=== PATIENT | female | born 1975 | race Caucasian/White ===

== ENCOUNTER 2019-10-29 07:04 | Outpatient (CLI) | payer OTHER, SELFPAY ==
[2019-10-29 08:06] LABS: Basophils Percent Auto 0.2 % (0.2-1.2); Eosinophils Absolute Auto 0.2 K/mm3 (0-0.3); Eosinophils Percent Auto 3.9 % (0-4.4); Hematocrit 42.3 % (37.0-47.0); Hemoglobin 14.1 g/dL (12.0-15.0); Immature Granulocyte Absolute 0.01 K/mm3 (0.00-0.031); Immature Granulocyte Percent A 0.2 % (0-0.5); Lymphocytes Absolute Auto 1.23 K/mm3 (0.9-3.2); Mean Corpuscular HGB Conc 33.3 g/dl (32-36); Mean Corpuscular Hemoglobin 30.7 pg (26-34); Mean Platelet Volume 10.7 fl (7.4-10.4); Monocytes Absolute Auto 0.4 K/mm3 (0.1-0.6); Neutrophils Absolute Auto 2.6 K/mm3 (1.3-6.7); Neutrophils Percent Auto 59.7 % (45.5-73.1); Platelet Count Result 196 k/mm3 (150-375); Red Cell Distribution Width 12.3 % (11.5-14.5); White Blood Count 4.4 K/mm3 (4.5-10.0)
[2019-10-29 08:47] LABS: Alanine Aminotransferase 21 U/L (4-35); Albumin Level 4.4 g/dL (3.5-5.1); Alkaline Phosphatase 107 U/L (38-126); Anion Gap 7 mmol/L (8-16); Aspartate Amino Transferase 27 U/L (14-36); Bilirubin,Total 0.3 mg/dL (0.2-1.3); Blood Urea Nitrogen 13 mg/dL (7-17); Calcium 8.9 mg/dL (8.4-10.2); Carbon Dioxide 27 mmol/L (22-30); Chloride 104 mmol/L (98-107); Cholesterol 238 mg/dL (0-200); Estimated Glomerular Filt Rate > 60; Glucose 86 mg/dL (65-105); HDL Direct 108 mg/dL; Sodium 138 mmol/L (137-145); Triglycerides 108 mg/dL (<150)
[2019-10-29 08:58] LABS: LDL Cholesterol Direct 110 mg/dL
[2019-10-29 09:49] LABS: Folic Acid 11.1 ng/mL (2.76->20)
== END 2019-10-29 07:05 | disposition home or self-care (01) ==
LOC: ANHLAB 07:06
PROVIDERS: PCP Internal Medicine; Visit Provider Internal Medicine
DX: R53.83 Other fatigue (principal); E78.5 Hyperlipidemia, unspecified
CPT/HCPCS: 36415; 80053; 80061; 82607; 82746; 84443; 85025

== ENCOUNTER 2020-01-31 10:03 | Outpatient (NON) | payer OTHER, SELFPAY ==
[2020-02-01 01:59] LABS: SARS-CoV-2 RNA PCR Positive
== END 2020-01-31 10:04 ==
LOC: ANHCOVIDDT 10:04
PROVIDERS: PCP Internal Medicine; Visit Provider Physician Assistant
DX: U07.1 COVID-19 (principal)
CPT/HCPCS: 87635; C9803; U0003

== ENCOUNTER 2020-02-22 15:41 | Outpatient (CLI) | payer OTHER, SELFPAY ==
--- NOTE | ~2020-02-22 | MM_ITS ---
EXAMINATION: MM screening [facility] BI w dionicio HISTORY: Screening mammogram TECHNIQUE: Craniocaudal and mediolateral oblique 3-D tomosynthesis images were obtained and synthetic 2-D images were generated. CAD analysis was submitted and interpreted. COMPARISON: 12/01/2018, 01/24/2014, 01/10/2014 BREAST PARENCHYMAL COMPOSITION: The breasts are heterogeneously dense, which may obscure small masses . FINDINGS: There is no evidence of suspicious mass, calcification, or architectural distortion to sugg est malignancy in either breast. There has been no suspicious interval change. IMPRESSION: 1. No mammographic evidence of malignancy. 2. Recommend routine screening mammography in one year. BI-RADS Category 1: Negative Reviewed, dictated and finalized at location A. OMER SERVICE SALES CONSULTANT
== END 2020-02-22 15:42 | disposition home or self-care (01) ==
LOC: ANHIMG 15:42
PROVIDERS: PCP Internal Medicine; Visit Provider Internal Medicine
DX: Z12.31 Encounter for screening mammogram for malignant neoplasm of breast (principal)
CPT/HCPCS: 77063; 77067

== ENCOUNTER 2020-03-05 16:12 | Outpatient (CLI) | payer OTHER, SELFPAY ==
[2020-03-05 16:39] LABS: Alanine Aminotransferase 36 U/L (4-35); Aspartate Amino Transferase 38 U/L (14-36)
== END 2020-03-05 16:13 | disposition home or self-care (01) ==
LOC: ANHLAB 16:14
PROVIDERS: PCP Internal Medicine; Visit Provider Podiatrist Foot & Ankle Surgery
DX: B35.1 Tinea unguium (principal)
CPT/HCPCS: 36415; 84450; 84460

== ENCOUNTER 2020-04-28 07:21 | Outpatient (CLI) | payer OTHER, SELFPAY ==
[2020-04-28 07:51] LABS: Basophils Percent Auto 0.3 % (0.2-1.2); Eosinophils Absolute Auto 0.2 K/mm3 (0-0.3); Eosinophils Percent Auto 4.1 % (0-4.4); Hemoglobin 13.1 g/dL (12.0-15.0); Immature Granulocyte Absolute 0.02 K/mm3 (0.00-0.031); Immature Granulocyte Percent A 0.6 % (0-0.5); Lymphocytes Percent Auto 30.4 % (18.3-44.2); Mean Corpuscular HGB Conc 32.8 g/dl (32-36); Mean Corpuscular Hemoglobin 30.5 pg (26-34); Mean Platelet Volume 10.1 fl (7.4-10.4); Monocytes Absolute Auto 0.3 K/mm3 (0.1-0.6); Monocytes Percent Auto 9.4 % (2.6-8.5); Neutrophils Percent Auto 55.2 % (45.5-73.1); Platelet Count Result 186 k/mm3 (150-375); Red Cell Distribution Width 12.6 % (11.5-14.5); White Blood Count 3.6 K/mm3 (4.5-10.0)
[2020-04-28 09:00] LABS: Folic Acid 9.1 ng/mL (2.76->20)
== END 2020-04-28 07:22 | disposition home or self-care (01) ==
PROVIDERS: PCP Internal Medicine; Visit Provider Internal Medicine
DX: D72.819 Decreased white blood cell count, unspecified (principal); E53.8 Deficiency of other specified B group vitamins
CPT/HCPCS: 36415; 82607; 82746; 85025

== ENCOUNTER 2020-05-02 16:19 | Outpatient (CLI) | payer OTHER, SELFPAY ==
[2020-05-05 07:44] LABS: FSH 124.6 mIU/mL (***); Testosterone Total 26 ng/dL (2-45)
[2020-05-10 21:42] LABS: Estrogen 192.4 pg/mL
== END 2020-05-02 16:20 | disposition home or self-care (01) ==
LOC: ANHLAB 16:20
PROVIDERS: PCP Internal Medicine; Visit Provider Obstetrics & Gynecology
DX: N95.1 Menopausal and female climacteric states (principal)
CPT/HCPCS: 36415; 82672; 83001; 84403

== ENCOUNTER 2020-06-04 16:16 | Outpatient (CLI) | payer OTHER, SELFPAY ==
[2020-06-04 16:49] LABS: Alanine Aminotransferase 17 U/L (4-35); Aspartate Amino Transferase 31 U/L (14-36)
== END 2020-06-04 16:17 | disposition home or self-care (01) ==
LOC: ANHLAB 16:18
PROVIDERS: PCP Internal Medicine; Visit Provider Podiatrist Foot & Ankle Surgery
DX: B35.1 Tinea unguium (principal)
CPT/HCPCS: 36415; 84450; 84460

== ENCOUNTER 2021-05-16 16:11 | Emergency (ER) | payer OTHER, SELFPAY ==
--- NOTE | ~2021-05-16 | XR_ITS ---
EXAMINATION: XR ankle RT min 3V EXAM DATE: 05/16/2021 16:47 INDICATION: Right ankle pain after a fall 6 days ago . TECHNIQUE: Right ankle frontal, lateral and oblique projections obtained and reviewed. There is no p rior study for comparison. FINDINGS: The right ankle mortise appears intact. There are no acute fractures or dislocations iden tified. There is no subcutaneous gas. The soft tissue is unremarkable. There are no radiopaque fo reign bodies. IMPRESSION: No acute osseous findings. Reviewed, dictated and finalized at location A. F ANTISUBMARINE OFFICER IMPRESSION: No acute osseous findings.
--- NOTE | ~2021-05-16 | XR_ITS ---
EXAMINATION: XR knee LT 3V DATE: 05/16/2021 16:47 INDICATION: Left knee pain post fall TECHNIQUE: Anteroposterior, 2 oblique and crosstable lateral views of the left knee were obtained COMPARISON: None. FINDINGS: Alignment is normal. No fracture. Spaces appear normal on nonweightbearing imaging. No joint effusio n/layering lipohemarthrosis. Soft tissues are unremarkable. IMPRESSION: 1. Negative left knee radiographs. Reviewed, dictated and finalized at location A. KSHAFT BALANCER
--- NOTE | 2021-05-16 16:18 | ED.LOWEXIN ---
HPI - Extremity Injury (Lower) General Chief Complaint: Extremity Injury, Lower Stated Complaint: lt knee and rt ankle pain Time Seen by Provider: 05/16/21 16:55 Source: patient and RN notes reviewed Mode of arrival: ambulatory Limitations: no limitations History of Present Illness HPI Narrative: 45-year-old female presents concern for right ankle pain and left knee. Reports days ago while on vacation she slipped falling on a concrete chair in a pool hitting her left knee. She same time she twisted her right leg. She reports since then she has been using Tylenol, compression. She reports she used ibuprofen at the beginning of the injury. She reports knee pain is anterior and has been getting slightly better. She reports healing abrasion to the left knee. MD complaint: knee injury and ankle injury Related Data Home Medications Medication Instructions Recorded Confirmed carvedilol [Coreg] 6.25 mg PO BID 05/16/21 05/16/21 fluticasone propionate [Flonase] 1 spray INTRANASAL DAILY 05/16/21 05/16/21 ospemifene [Osphena] 60 mg PO DAILY 05/16/21 05/16/21 venlafaxine [Effexor XR] 37.5 mg PO DAILY 05/16/21 05/16/21 Allergies Allergy/AdvReac Type Severity Reaction Status Date / Time cat dander Allergy Mild Other Verified 05/16/21 16:28 ragweed pollen Allergy Mild Unknown Verified 05/16/21 16:28 Review of Systems Review of Systems: CONSTITUTIONAL: Denies malaise, chills, sweats, or fever. SKIN: Denies rash or itching, open skin, laceration, abrasion, redness, warmth, swelling. MUSCULOSKELETAL: Reports left knee pain and right ankle pain NEUROLOGIC: Denies numbness, weakness All systems reviewed & are unremarkable except as noted in HPI and below PMFSH Past Medical History Medical History Asthma History of vaginal delivery Toenail fungus Surgical History Surgical History H/O tubal ligation History of bunionectomy History of colonoscopy S/P breast lumpectomy [place] teeth removed Family History Family History Mother Patient's mother is in good health Family history of dementia Father Heart disease Sibling Patient's sister is in good health Patient's brother is in good health Grandparent Carcinoma of colon Family history of malignant neoplasm of breast Cerebrovascular accident Social History Social History Smoking packs per day: 0.2 Smoking cigarettes per day: 4.0 Years smoked: 30 Smoking pack-years: 6.00 Smoking status: Current every day smoker Second hand tobacco smoke exposure: No Alcohol intake: current Comments At time of signature, agree with nursing past medical, surgical, social and family history. There is no relevant family history pertinent to the presenting complaint Exam Narrative: GENERAL: Well-appearing, well-nourished, and in no acute distress. HEAD: Normocephalic, atraumatic. EYES: PERRLA, conjunctivae clear NECK: Supple. CHEST: Speaks in full sentences. No respiratory distress. HEART: Regular rate and rhythm. Normal and equal peripheral pulses. EXTREMITIES: Right ankle has normal strength and sensation, normal range of motion. No edema, mild healing ecchymosis. 5/5 strength with ankle and digit flexion and extension. Normal sensation with sensitivity to light touch and pain. No point tenderness. No open wounds, no skin tenting, no devitalized tissue or atrophy, no trophic changes, no obvious deformity, alignment normal, nearby joints and structures intact. Distal pulses palpable and equal bilaterally, skin warm, dry, pink. Capillary refill less than 3 seconds. Left knee has normal strength and sensation, grossly normal range of motion. Mild superficial anterior edema, no ecchymosis. Normal sensation with sensitivity to light touch and pain. Anterior tenderness. No ope
[2021-05-16 16:21] VITALS: BP 152/77; PULSE 83; RESP 18; TEMP 36.8; O2SAT 100
== END 2021-05-16 17:11 | disposition home or self-care (01) ==
PROVIDERS: Emergency Provider Nurse Practitioner; PCP Internal Medicine
DX: S93.401A Sprain of unspecified ligament of right ankle, initial encounter (principal); S96.911A Strain of unspecified muscle and tendon at ankle and foot level, right foot, initial encounter; S89.92XA Unspecified injury of left lower leg, initial encounter; W01.0XXA Fall on same level from slipping, tripping and stumbling without subsequent striking against object, initial encounter; F17.210 Nicotine dependence, cigarettes, uncomplicated; J45.909 Unspecified asthma, uncomplicated
CPT/HCPCS: 73562; 73610; 99214; G0463

== ENCOUNTER 2021-06-12 15:20 | Outpatient (CLI) | payer OTHER, SELFPAY ==
--- NOTE | ~2021-06-12 | MM_ITS ---
EXAMINATION: MM screening [facility] w dionicio HISTORY: Screening TECHNIQUE: Craniocaudal and mediolateral oblique 3-D tomosynthesis images were obtained and synthetic 2-D images were generated. CAD analysis was submitted and interpreted. COMPARISON: Comparison to multiple prior studies sequentially, with oldest reviewed study dated 11/2012. BREAST PARENCHYMAL COMPOSITION: The breasts are heterogeneously dense, which may obscure small masses . FINDINGS: There is no evidence of suspicious mass, calcification, or architectural distortion to sugg est malignancy in either breast. There has been no suspicious interval change. IMPRESSION: 1. No mammographic evidence of malignancy. 2. Recommend routine screening mammography in one year. BI-RADS Category 1: Negative Reviewed, dictated and finalized at location A.
== END 2021-06-12 15:21 | disposition home or self-care (01) ==
LOC: ANHIMG 15:21
PROVIDERS: PCP Internal Medicine; Visit Provider Physician Assistant
DX: Z12.31 Encounter for screening mammogram for malignant neoplasm of breast (principal)
CPT/HCPCS: 77063; 77067

== ENCOUNTER 2021-07-16 08:58 | Outpatient (CLI) | payer OTHER, SELFPAY ==
--- NOTE | 2021-07-16 11:15 | NEURO_ITS ---
Impression: # Complains of numbness of hands. # No Carpal Tunnel Syndrome. # No ulnar neuropathy. # Normal needle/EMG exam. # Clinical correlation recommended. Nerve Conduction Studies Anti Sensory Summary Table Stim Site NR Peak (ms) P-T Amp (?V) Site1 Site2 Delta-P (ms) Dist (cm) Cheo (m/s) Left Median Anti Sensory (2-3nd Digit) Wrist 2.8 92.0 Wrist 2-3nd Digit 2.8 14.0 50 Wrist 2.8 96.8 Wrist 2-3nd Digit 2.8 14.0 50 Right Median Anti Sensory (2-3nd Digit) Wrist 3.2 63.9 Wrist 2-3nd Digit 3.2 14.0 44 Wrist 3.3 86.4 Wrist 2-3nd Digit 3.2 14.0 44 Left Radial Anti Sensory (Base 1st Digit) Wrist 2.1 21.8 Wrist Base 1st Digit 2.1 0.0 Right Radial Anti Sensory (Base 1st Digit) Wrist 2.5 17.1 Wrist Base 1st Digit 2.5 0.0 Left Ulnar Anti Sensory (5th Digit) Wrist 2.5 59.7 Wrist 5th Digit 2.5 14.0 56 Right Ulnar Anti Sensory (5th Digit) Wrist 2.8 52.2 Wrist 5th Digit 2.8 14.0 50 Motor Summary Table Stim Site NR Onset (ms) O-P Amp (mV) Site1 Site2 Delta-0 (ms) Dist (cm) Cheo (m/s) Left Median Motor (Abd Poll Brev) Wrist 3.0 3.2 Elbow Wrist 5.3 29.0 55 Elbow 8.3 5.2 Right Median Motor (Abd Poll Brev) Wrist 3.2 3.5 Elbow Wrist 5.0 28.0 56 Elbow 8.2 3.4 Left Ulnar Motor (Abd Dig Minimi) Wrist 2.3 5.6 A Elbow Wrist 4.9 28.0 57 A Elbow 7.2 4.5 Right Ulnar Motor (Abd Dig Minimi) Wrist 2.5 6.0 A Elbow Wrist 5.3 29.0 55 A Elbow 7.8 4.7 F Wave Studies NR F-Lat (ms) L-R F-Lat (ms) Left Median (Mrkrs) (Abd Poll Brev) 27.32 1.19 Right Median (Mrkrs) (Abd Poll Brev) 28.52 1.19 Left Ulnar (Mrkrs) (Abd Dig Min) 27.19 0.47 Right Ulnar (Mrkrs) (Abd Dig Min) 27.66 0.47 EMG Side Muscle Nerve Root Ins Act Fibs Amp Dur Recrt Comment Right 1stDorInt Ulnar C8-T1 Nml Nml Nml Nml Nml Right Ext Indicis Radial (Post Int) C7-8 Nml Nml Nml Nml Nml Right Ext Digitorum Radial (Post Int) C7-8 Nml Nml Nml Nml Nml Right BrachioRad Radial C5-6 Nml Nml Nml Nml Nml Right PronatorTeres Median C6-7 Nml Nml Nml Nml Nml Right Abd Poll Brev Median C8-T1 Nml Nml Nml Nml Nml Left 1stDorInt Ulnar C8-T1 Nml Nml Nml Nml Nml Left Ext Indicis Radial (Post Int) C7-8 Nml Nml Nml Nml Nml Left Ext Digitorum Radial (Post Int) C7-8 Nml Nml Nml Nml Nml Left BrachioRad Radial C5-6 Nml Nml Nml Nml Nml Left PronatorTeres Median C6-7 Nml Nml Nml Nml Nml Left Abd Poll Brev Median C8-T1 Nml Nml Nml Nml Nml MTDD
== END 2021-07-16 08:59 | disposition home or self-care (01) ==
PROVIDERS: PCP Internal Medicine; Visit Provider Internal Medicine
DX: R20.0 Anesthesia of skin (principal)
CPT/HCPCS: 95886; 95911

== ENCOUNTER → 2022-06-10 10:21 | Outpatient (CLI) | payer OTHER, SELFPAY ==
--- NOTE | ~2022-06-10 | US_ITS ---
EXAMINATION: US pelvic complete w TV DATE: 06/10/2022 10:48 INDICATION: Postmenopausal bleeding. TECHNIQUE: Multiple transabdominal and transvaginal sonographic images of the pelvis were obtained. COMPARISON: None. FINDINGS: TRANSABDOMINAL ULTRASOUND: The uterus measures 7.8 x 3.3 x 3.9 cm. There is no free fluid in the pelvis. TRANSVAGINAL ULTRASOUND: The endometrial complex measures 6 mm in thickness. The right ovary measures 2.3 x 1.5 x 2.7 cm. The left ovary measures 1.4 x 0.8 x 1.7 cm. There is normal vascular flow in the ovaries. IMPRESSION: 1. Thickened endometrial complex. The differential diagnosis includes endometrial hyperplasia, polyp, and carcinoma. Biopsy is recommended. Reviewed, dictated and finalized at location A. IMPRESSION: 1. Thickened endometrial complex. The differential diagnosis includes endometri al hyperplasia, polyp, and carcinoma. Biopsy is recommended.
== END ==
PROVIDERS: PCP Internal Medicine; Visit Provider Obstetrics & Gynecology
DX: N95.0 Postmenopausal bleeding (principal); R93.89 Abnormal findings on diagnostic imaging of other specified body structures
CPT/HCPCS: 76830; 76856

== ENCOUNTER 2022-08-15 01:01 | Day surgery (SDC) | payer OTHER, SELFPAY ==
[2022-08-11 16:21] VITALS: BMI 26.6
--- NOTE | 2022-08-11 16:47 | PC.NURSE ---
Report to the Outpatient Waiting Room, entrance under the green pavilion located off [facility], at 1000 on 08-15-22. Planned Procedure Time: 1200. Time changes happen often and if your time is changed the preop area will call you the afternoon before. - You and your visitor will be asked to self-screen and do not enter if you have any COVID symptoms. - A mask is optional within the hospital at this time. Patients may have clear liquids (water, carbonated beverages, clear teas, apple juice) until 3 hours prior to surgery with a maximum of 20 ounces. 0900 - No food from midnight until time of surgery - Infants may have breast milk until 4 hours before surgery, formula 6 hours prior to surgery. - Children will be allowed to drink immediately following surgery. If applicable, please bring a bottle or sippy cup to assist with drinking. Juice, water, soda, and popsicles are readily available. For infants on formula, please bring formula the day of surgery. Pacifiers are allowed. Take the following medications with a SIP of water the morning of surgery: Tylenol if needed DO NOT STOP ANY OF YOUR OTHER PRESCRIPTION MEDICATIONS PRIOR TO SURGERY ?EXCEPT THE FOLLOWING Medications to discontinue per physician: N/A Please no make-up, nail chinese, hairspray, perfume, deodorant, or body powder the day of surgery. No jewelry (including any body piercings) or valuables the day of surgery, leave them at home. Please take a shower or bath the night before, or the morning of, surgery with an antibacterial soap. Wear comfortable, loose fitting clothing. Children are encouraged to wear pajamas. - Jewelry must be removed prior to entering the operating room. Rings and piercings that are not removed may be cut off. - The hospital will not accept responsibility for valuables. - Please leave all valuables, including medications, at home the day of surgery. If you are going home after surgery, a licensed lift driver must drive you home. - NO public transportation without another adult if you receive anesthesia. - We recommend that an adult stay with you for 24 hours following discharge. - We also recommend that you do not drive, make important decision, drink alcoholic beverages, or take any drugs that were not prescribed by your health care provider for at least 24 hours after your discharge time. For Pediatric surgeries, we recommend two adults accompany the child home. Follow any additional instructions given to you from your surgeon. If you or anyone in your household have experienced Covid symptoms in the past week, please notify your surgeon or the nurse liaison at the phone number below for possible testing. Telephone instructions given to Julissa Ahn and asked if any additional questions and then verbalized understanding. Patient advised to call surgeon office or pre surgery nurse liaison [phone] if any additional questions.
--- NOTE | 2022-08-14 16:10 | PM.IMHP ---
H&P: HPI History of Present Illness Date/Time: 08/14/22 16:10 Chief Complaint: Postmenopausal bleeding Narrative: Patient with history of postmenopausal bleeding she had thickened endometrial stripe on ultrasound and biopsy shows cystic endometrial atrophy she was recommended for D and C hysteroscopy. Review of Systems Review of Systems: All systems reviewed & are unremarkable except as noted in HPI and below Cardiovascular: Cardiovascular: Reports no additional cardiovascular complaints, Denies chest pain and Denies dyspnea Respiratory: Respiratory: Reports no additional respiratory complaints and Denies dyspnea Gastrointestinal: Gastrointestinal: Reports abdominal pain, Denies change in bowel habits, Denies diarrhea, Denies nausea and Denies vomiting Genitourinary: Genitourinary: Reports pelvic pain Musculoskeletal: Musculoskeletal: Reports back pain Integumentary/Breasts: Skin/Breast: Reports system reviewed and no additional complaints, except as docu Neurologic: Reports system reviewed and no additional complaints, except as documented PMFSH Past Medical History Medical History Asthma History of vaginal delivery Toenail fungus Surgical History Surgical History H/O tubal ligation History of bunionectomy History of colonoscopy S/P breast lumpectomy [place] teeth removed Family History Family History Mother Patient's mother is in good health Family history of dementia Father Heart disease Sibling Patient's sister is in good health Patient's brother is in good health Grandparent Carcinoma of colon Family history of malignant neoplasm of breast Cerebrovascular accident Social History Social History Smoking packs per day: 0.5 Smoking cigarettes per day: 10.0 Years smoked: 30 Smoking pack-years: 15.00 Smoking status: Current some day smoker Tobacco type: cigarettes and smokeless tobacco Second hand tobacco smoke exposure: No Additional smoking assessment comments: Patient currently may smoke 1-2 cigarettes per day and chews nicotine gum Alcohol intake: current Drinks per week: 4 Alcohol use details: may 3-4 drinks on the weekends Substance use: never Substance use type: does not use Lack of Transportation: No Lack of Food: Never True Current Housing: I Have Housing Concerned About Future Housing: No Difficulty Paying Gas/Electric Bills: No Difficulty Paying for Meds: No Currently Unemployed: No Education: Associate Degree Difficulty w/ Childcare or Family Care: No Living arrangements: with family Spiritual care concerns: No Meds Home Medications and Allergies Home Medications Medication Instructions Recorded Confirmed Type fluticasone propionate 50 1 spray intranasal DAILY 06/24/22 08/15/22 History mcg/actuation nasal spray,suspension atorvastatin 20 mg tablet 20 mg PO DAILY #90 tabs 07/16/22 08/15/22 Rx acetaminophen 500 mg capsule 1,000 mg PO Q6H PRN pain 08/11/22 08/15/22 History carvedilol 6.25 mg tablet 6.25 mg PO DAILY 08/11/22 08/15/22 History Allergies Allergy/AdvReac Type Severity Reaction Status Date / Time cat dander Allergy Mild Other Verified 08/15/22 09:59 ragweed pollen Allergy Mild Watery Eye Verified 08/15/22 09:59 Exam Const: Orientation/consciousness: oriented to person and oriented to place HENMT: Head: normal to inspection Eyes: General: appearance normal, both eyes and all related structures Resp: Effort & Inspection: normal respiratory effort Auscultation: clear to auscultation bilaterally Cardio: Rate: regular rate Rhythm: regular rhythm GI: Inspection: normal to inspection GI Palp: No Rebound tenderness present Neuro: General: oriented to person and orie
[2022-08-15 10:02] VITALS: BP 154/68; PULSE 79; RESP 18; TEMP 36.6; O2SAT 100
--- NOTE | 2022-08-15 10:17 | WPDANESEPPF ---
Anes - Initial Pre Proc Eval Procedure: Operation Date: 08/15/22 11:45 Proposed Procedures p Hysteroscopy Dilation and Curettage with Removal of any Endometrial Lesions If Necessary - Cristopher Leon MD Date/Time: 08/15/22 10:17 Surgeon: Cristopher Leon MD Pre Op Diagnosis: Post Menopausal Bleeding Patient Data Age: 46 Gender: F Height: 1.68 m Weight: 73.9 kg Last Vital Signs Temp 36.6 C 08/15/22 10:02 Pulse 79 08/15/22 10:02 Resp 18 08/15/22 10:02 BP 154/68 H 08/15/22 10:02 Pulse Ox 100 08/15/22 10:02 Allergies Allergy/AdvReac Type Severity Reaction Status Date / Time cat dander Allergy Mild Other Verified 08/15/22 09:59 ragweed pollen Allergy Mild Watery Eye Verified 08/15/22 09:59 Home Medications Medication Instructions Recorded Confirmed Type fluticasone propionate 50 1 spray intranasal DAILY 06/24/22 08/15/22 History mcg/actuation nasal spray,suspension atorvastatin 20 mg tablet 20 mg PO DAILY #90 tabs 07/16/22 08/15/22 Rx acetaminophen 500 mg capsule 1,000 mg PO Q6H PRN pain 08/11/22 08/15/22 History carvedilol 6.25 mg tablet 6.25 mg PO DAILY 08/11/22 08/15/22 History Patient hx anesthesia problems: none Family hx anesthesia problems: none Results Review: All pre-operative results and documents have been reviewed as part of the pre-operative evaluation. [facility] Past Medical History Medical History Asthma History of vaginal delivery Toenail fungus Surgical History Surgical History H/O tubal ligation History of bunionectomy History of colonoscopy S/P breast lumpectomy [place] teeth removed Family History Family History Mother Patient's mother is in good health Family history of dementia Father Heart disease Sibling Patient's sister is in good health Patient's brother is in good health Grandparent Carcinoma of colon Family history of malignant neoplasm of breast Cerebrovascular accident Social History Social History Smoking packs per day: 0.5 Smoking cigarettes per day: 10.0 Years smoked: 30 Smoking pack-years: 15.00 Smoking status: Current some day smoker Tobacco type: cigarettes and smokeless tobacco Second hand tobacco smoke exposure: No Additional smoking assessment comments: Patient currently may smoke 1-2 cigarettes per day and chews nicotine gum Alcohol intake: current Drinks per week: 4 Alcohol use details: may 3-4 drinks on the weekends Substance use: never Substance use type: does not use Lack of Transportation: No Lack of Food: Never True Current Housing: I Have Housing Concerned About Future Housing: No Difficulty Paying Gas/Electric Bills: No Difficulty Paying for Meds: No Currently Unemployed: No Education: Associate Degree Difficulty w/ Childcare or Family Care: No Living arrangements: with family Spiritual care concerns: No Anes - Eval Final PreProcedure Day of Procedure 08/15/22 10:17 Patient weight: overweight Heart: regular rate and rhythm Lungs: clear to auscultation Airway: Mallampati scale class II Neurological: alert and oriented Last oral intake: >/= 8 hours ASA classification: III Emergent: no Anesthetic plan: proceed Anesthesia type and monitoring: general GIVS and standard monitoring Results Review: All pre-operative results and documents have been reviewed as part of the pre-operative evaluation. Informed Consent: The patient's anesthetic plan and its attendant risks and benefits were discussed with the patient/family/POA. Questions were solicited and answers provided to the satisfaction of the patient/family/POA.
[2022-08-15] MEDS: LACTATED RINGERS 1,000 ML 30 ML IV CONT (10:24)
[2022-08-15] MEDS: ACETAMINOPHEN 500 MG TABLET 1000 MG PO (11:08)
--- NOTE | 2022-08-15 11:35 | WPDHPUPDATE1 ---
History and Physical Update Update Date/Time: 08/15/22 11:35 History and Physical has been reviewed, including an updated exam of the patient. There are NO changes in the patient's condition. Risks, benefits, and alternatives have been discussed and questions answered. Patient agrees to proceed with procedure.
--- NOTE | 2022-08-15 11:53 | SUR.PREOP ---
PATIENT UPDATED ON TIME DELAY
--- NOTE | 2022-08-15 11:56 | W.PM.PROC2 ---
Procedure Note - Detailed Date of Procedure 08/15/22 Pre-op Diagnosis Post Menopausal Bleeding Post-op Diagnosis Same Procedure Performed Dilation and curettage hysteroscopy diagnostic. Surgeon Cristopher Leon MD Anesthesia MAC and Local Indications Postmenopausal bleeding, endometrial biopsy with cystic atrophy. Description of Procedure After form consent was obtained patient was taken to the operating room and adequate IV sedation was administered. She was placed in high lithotomy position and prepped and draped in sterile fashion. Attention was turned to the vagina. Speculum inserted. Single-tooth tenaculum placed on anterior lip of the cervix. 1% lidocaine was injected at the cervical vaginal interface at 2, 5, 8 and 10 oclock position. The was sounded to 7cm. The hysteroscope was inserted and the cervix was dilated with hydrodilation as it was advanced into uterine canal. The cavity appeared atrophic. No lesions seen. A curettage was then performed and there was minimal tissue obtained. The single-tooth tenaculum was removed. Hemostasis was noted. The speculum was removed. The patient tolerated procedure well. Estimated Blood Loss 5 Drains No Packing No Pathology Yes ( Scant endometrial curettings) Complications No immediate complications Condition Stable Disposition PACU [facility] Billing Surgery - Charge Forward: Surgery Billing
[2022-08-15] MEDS: ceFAZolin 2 GM/D5W 50 ML 2 GM/50 ML BAG IVPB (12:10)
[2022-08-15] MEDS: LIDOCAINE HCL 1% LOCAL INJ 10 ML VIAL INFILTRATE (12:17)
[2022-08-15 12:31] VITALS: BP 129/88; PULSE 85; RESP 16; O2SAT 100
[2022-08-15 13:00] VITALS: BP 141/73; PULSE 71; RESP 18
[2022-08-15 13:18] VITALS: BP 146/63; PULSE 74; RESP 16
== END 2022-08-15 13:21 | disposition home or self-care (01) ==
PROVIDERS: PCP Internal Medicine; Visit Provider Obstetrics & Gynecology
PROC: 0U5B8ZZ Destruction of Endometrium, Via Natural or Artificial Opening Endoscopic (ICD-10-PCS; CPT 58563; principal; 2022-08-15 11:45)
DX: N95.0 Postmenopausal bleeding (principal); F17.210 Nicotine dependence, cigarettes, uncomplicated
CPT/HCPCS: 58558; 88305; A9270; J0690; J2250; J2704; J3010; J7120

== ENCOUNTER 2022-08-27 16:12 | Outpatient (CLI) | payer OTHER, SELFPAY ==
--- NOTE | ~2022-08-27 | MM_ITS ---
EXAMINATION: MM screening [facility] BI w dionicio HISTORY: Screening mammogram TECHNIQUE: Craniocaudal and mediolateral oblique 3-D tomosynthesis images were obtained and synthetic 2-D images were generated. CAD analysis was submitted and interpreted. COMPARISON: June 12, 2021, February 22, 2020, December 01, 2018 bilateral digital screening mammogra m examinations BREAST PARENCHYMAL COMPOSITION: The breasts are heterogeneously dense, which may obscure small masses . FINDINGS: There is no evidence of suspicious mass, calcification, or architectural distortion to sugg est malignancy in either breast. There has been no suspicious interval change. IMPRESSION: 1. No mammographic evidence of malignancy. 2. Recommend routine screening mammography in one year. BI-RADS Category 1: Negative Reviewed, dictated and finalized at location A.
== END 2022-08-27 16:13 | disposition home or self-care (01) ==
LOC: ANHIMG 16:13
PROVIDERS: PCP Internal Medicine; Visit Provider Internal Medicine
DX: Z12.31 Encounter for screening mammogram for malignant neoplasm of breast (principal)
CPT/HCPCS: 77063; 77067

== ENCOUNTER 2022-10-02 16:01 | Outpatient (CLI) | payer OTHER, SELFPAY ==
--- NOTE | ~2022-10-02 | XR_ITS ---
XR elbow RT 2V DATE: 10/02/2022 16:20 INDICATION: Right elbow pain TECHNIQUE: AP and lateral views COMPARISON: None FINDINGS: No fracture or dislocation or joint effusion. No periosteal reaction or bone destruction. IMPRESSION: Negative Reviewed, dictated and finalized at location A. IMPRESSION: Negative
== END 2022-10-02 16:02 | disposition home or self-care (01) ==
PROVIDERS: PCP Internal Medicine; Visit Provider Physician Assistant
DX: M25.521 Pain in right elbow (principal)
CPT/HCPCS: 73070

== ENCOUNTER → 2023-04-18 09:38 | Outpatient (CLI) | payer OTHER, SELFPAY ==
--- NOTE | ~2023-04-18 | US_ITS ---
Pelvic ultrasound. Clinical History: Postmenopausal bleeding Technique: Realtime transabdominal and transvaginal scanning of the pelvis was performed. Color flow Doppler and Doppler spectral analysis were performed. Findings: The uterus is anteverted. The endometrial stripe has a thickness of 3 mm. Questional ill-d efined presumed fibroid anteriorly measuring up to 1.7 cm in diameter. The right ovary measures 1.7 x 1.0 x 1.4 cm. No significant right ovarian or adnexal mass is seen. The left ovary measures 2.1 x 2.2 x 0.6 cm. No significant left ovarian or adnexal mass is seen. There is no evidence of free fluid in the cul de sac. Impression: Questionable ill-defined fibroid, as above. No definite abnormal endometrial thickening. Reviewed, dictated and finalized at [facility]. OW TRIMMER Impression: Questionable ill-defined fibroid, as above. No definite abnormal endometrial thickening.
== END ==
PROVIDERS: PCP Obstetrics & Gynecology; Visit Provider Obstetrics & Gynecology
DX: N95.0 Postmenopausal bleeding (principal)
CPT/HCPCS: 76830; 76856

== ENCOUNTER 2023-05-13 15:24 | Outpatient (CLI) | payer OTHER, SELFPAY ==
--- NOTE | 2023-05-13 15:30 | ECG_ITS ---
Measurements Intervals [place] Rate: 88 P: 71 NH: 142 QRS: 24 QRSD: 74 T: 43 QT: 340 QTc: 413 Interpretive Statements SINUS RHYTHM CANNOT RULE OUT SEPTAL INFARCT, AGE INDETERMINATE BASELINE ARTIFACT- I, II, III, AVR, AVL, AVF ABNORMAL ECG NO PREVIOUS ECG AVAILABLE FOR COMPARISON Electronically Signed On 05-13-2023 15:53:09 SUPPORTABILITY ENGINEER by Lester Rivera D.O.
== END 2023-05-13 15:25 | disposition home or self-care (01) ==
LOC: ANHSURGERY 15:27
PROVIDERS: PCP Internal Medicine; Visit Provider Obstetrics & Gynecology
DX: Z01.818 Encounter for other preprocedural examination (principal); N95.0 Postmenopausal bleeding; I10 Essential (primary) hypertension; R94.31 Abnormal electrocardiogram [ECG] [EKG]; R93.1 Abnormal findings on diagnostic imaging of heart and coronary circulation
CPT/HCPCS: 36415; 86850; 86900; 86901; 93005

== ENCOUNTER 2023-05-20 02:38 | Day surgery (SDC) | payer OTHER, SELFPAY ==
[2023-05-12 14:53] VITALS: BMI 25.8
--- NOTE | 2023-05-12 14:57 | PC.NURSE ---
Report to the Outpatient Waiting Room, entrance under the green pavilion located off [facility], at time 6:45 on date 05/20/23. Planned Procedure Time: 8:45. Time changes happen often and if your time is changed the preop area will call you the afternoon before. - You and your visitor will be asked to self-screen and do not enter if you have any COVID symptoms. - A mask is optional within the hospital at this time. Patients may have clear liquids (water, carbonated beverages, clear teas, apple juice) until 3 hours prior to surgery (5:45) with a maximum of 20 ounces. - No food from midnight until time of surgery Take the following medications with a SIP of water the morning of surgery: CARVEDILOL, VENLAFAXINE DO NOT STOP ANY OF YOUR OTHER PRESCRIPTION MEDICATIONS PRIOR TO SURGERY ?EXCEPT THE FOLLOWING Medications to discontinue per physician: N/A Date to take last dose: N/A Please no make-up, nail kinyarwanda, hairspray, perfume, deodorant, or body powder the day of surgery. No jewelry (including any body piercings) or valuables the day of surgery, leave them at home. Please take a shower or bath the night before, or the morning of, surgery with an antibacterial soap. Wear comfortable, loose fitting clothing. - Jewelry must be removed prior to entering the operating room. Rings and piercings that are not removed may be cut off. - The hospital will not accept responsibility for valuables. - Please leave all valuables, including medications, at home the day of surgery. If you are going home after surgery, a licensed recycler forklift driver truck driver must drive you home. - NO public transportation without another adult if you receive anesthesia. - We recommend that an adult stay with you for 24 hours following discharge. - We also recommend that you do not drive, make important decision, drink alcoholic beverages, or take any drugs that were not prescribed by your health care provider for at least 24 hours after your discharge time. Follow any additional instructions given to you from your surgeon. If you or anyone in your household have experienced Covid symptoms in the past week, please notify your surgeon or the nurse liaison at the phone number below for possible testing. Telephone instructions given to PT - KRYSTIN HOFFMAN and asked if any additional questions and then verbalized understanding. Patient advised to call surgeon office or pre surgery nurse liaison [phone] if any additional questions.
[2023-05-20] VITALS (10 sets, daily range): BP systolic 104–153; BP diastolic 51–84; PULSE 53–108; RESP 12–16; TEMP 36.1–37.1; O2SAT 97–100; BMI 25.6
[2023-05-20] MEDS: LACTATED RINGERS 1,000 ML 30 ML IV CONT ×2 (07:10→09:52)
[2023-05-20] MEDS: ACETAMINOPHEN 500 MG TABLET 1000 MG PO (07:16)
[2023-05-20] MEDS: KETOROLAC 15 MG/ML VIAL (*BKC) IV PUSH (07:16)
--- NOTE | 2023-05-20 07:20 | PM.IMHP ---
H&P: HPI History of Present Illness Date/Time: 05/20/23 07:20 Chief Complaint: Postmenopausal bleeding Narrative: Patient with recurrent postmenopausal bleeding. She had evaluation for this six months ago with normal D and C hysteroscopy. Negative pathology. She has been offered oral progesterone or definitive treatment for the postmenopause bleeding and has opted for definitive treatment with laparoscopic hysterectomy. Review of Systems Review of Systems: All systems reviewed & are unremarkable except as noted in HPI and below Cardiovascular: Cardiovascular: Reports no additional cardiovascular complaints, Denies chest pain and Denies dyspnea Respiratory: Respiratory: Reports no additional respiratory complaints and Denies dyspnea Gastrointestinal: Gastrointestinal: Reports abdominal pain, Denies change in bowel habits, Denies diarrhea, Denies nausea and Denies vomiting Genitourinary: Genitourinary: Reports pelvic pain Musculoskeletal: Musculoskeletal: Reports back pain Integumentary/Breasts: Skin/Breast: Reports system reviewed and no additional complaints, except as docu Neurologic: Reports system reviewed and no additional complaints, except as documented PMFSH Past Medical History Medical History Asthma History of vaginal delivery Toenail fungus Surgical History Surgical History H/O tubal ligation History of bunionectomy History of colonoscopy S/P breast lumpectomy [place] teeth removed Family History Family History Mother Patient's mother is in good health Family history of dementia Father Heart disease Sibling Patient's sister is in good health Patient's brother is in good health Grandparent Carcinoma of colon Family history of malignant neoplasm of breast Cerebrovascular accident Social History Social History Smoking packs per day: 1 Smoking cigarettes per day: 20.0 Years smoked: 34 Smoking pack-years: 34.00 Smoking status: Current some day smoker Tobacco type: cigarettes and smokeless tobacco Second hand tobacco smoke exposure: No Additional smoking assessment comments: DOWN TO ~3 CIGARETTES/DAY AND NICOTINE GUM IN PAST YEAR Alcohol intake: current Drinks per week: 6 Alcohol use details: may 3-4 drinks on the weekends Substance use: never Substance use type: does not use Lack of Transportation: No Lack of Food: Never True Current Housing: I Have Housing Concerned About Future Housing: No Difficulty Paying Gas/Electric Bills: No Difficulty Paying for Meds: No Currently Unemployed: No Education: Associate Degree Difficulty w/ Childcare or Family Care: No Living arrangements: with family Spiritual care concerns: No Meds Home Medications and Allergies Home Medications Medication Instructions Recorded Confirmed Type ospemifene 60 mg tablet (Osphena) 60 mg PO DAILY #90 tabs 11/05/22 05/12/23 Rx venlafaxine 37.5 mg 37.5 mg PO DAILY #90 caps 11/05/22 05/12/23 Rx capsule,extended release 24 hr (Effexor XR) carvedilol 6.25 mg tablet 6.25 mg PO DAILY #90 tabs 05/01/23 05/12/23 Rx atorvastatin 20 mg tablet 20 mg PO DAILY #90 tabs 05/02/23 05/12/23 Rx fluticasone propionate 50 See Rx Instructions .Route 05/02/23 05/12/23 Rx mcg/actuation nasal .COMPLEX #48 grams spray,suspension Allergies Allergy/AdvReac Type Severity Reaction Status Date / Time cat dander Allergy Mild Other Verified 05/12/23 14:52 ragweed pollen Allergy Mild Watery Eye Verified 05/12/23 14:52 Exam Const: Orientation/consciousness: oriented to person and oriented to place HENMT: Head: normal to inspection Eyes: General: appearance normal, both eyes and all related structures Resp: Effort & Inspection: normal respiratory e
--- NOTE | 2023-05-20 07:24 | WPDHPUPDATE1 ---
History and Physical Update Update Date/Time: 05/20/23 07:24 History and Physical has been reviewed, including an updated exam of the patient. There are NO changes in the patient's condition. Risks, benefits, and alternatives have been discussed and questions answered. Patient agrees to proceed with procedure.
--- NOTE | 2023-05-20 07:40 | WPDANESEPPF ---
Anes - Initial Pre Proc Eval Procedure: Operation Date: 05/20/23 08:30 Proposed Procedures p Robotic Laparoscopic Assisted Total Vaginal Hysterectomy with Bilateral Salpingo-oophorectomy - Cristopher Leon MD Date/Time: 05/20/23 07:40 Surgeon: Cristopher Leon MD Pre Op Diagnosis: Recurrent post menopausal bleeding Patient Data Age: 47 Gender: F Height: 1.68 m Weight: 72 kg Allergies Allergy/AdvReac Type Severity Reaction Status Date / Time cat dander Allergy Mild Other Verified 05/12/23 14:52 ragweed pollen Allergy Mild Watery Eye Verified 05/12/23 14:52 Home Medications Medication Instructions Recorded Confirmed Type ospemifene 60 mg tablet (Osphena) 60 mg PO DAILY #90 tabs 11/05/22 05/12/23 Rx venlafaxine 37.5 mg 37.5 mg PO DAILY #90 caps 11/05/22 05/12/23 Rx capsule,extended release 24 hr (Effexor XR) carvedilol 6.25 mg tablet 6.25 mg PO DAILY #90 tabs 05/01/23 05/12/23 Rx atorvastatin 20 mg tablet 20 mg PO DAILY #90 tabs 05/02/23 05/12/23 Rx fluticasone propionate 50 See Rx Instructions .Route 05/02/23 05/12/23 Rx mcg/actuation nasal .COMPLEX #48 grams spray,suspension Patient hx anesthesia problems: none Family hx anesthesia problems: none Results Review: All pre-operative results and documents have been reviewed as part of the pre-operative evaluation. [facility] Past Medical History Medical History Asthma History of vaginal delivery Toenail fungus Surgical History Surgical History H/O tubal ligation History of bunionectomy History of colonoscopy S/P breast lumpectomy [place] teeth removed Family History Family History Mother Patient's mother is in good health Family history of dementia Father Heart disease Sibling Patient's sister is in good health Patient's brother is in good health Grandparent Carcinoma of colon Family history of malignant neoplasm of breast Cerebrovascular accident Social History Social History Smoking packs per day: 1 Smoking cigarettes per day: 20.0 Years smoked: 34 Smoking pack-years: 34.00 Smoking status: Current some day smoker Tobacco type: cigarettes and smokeless tobacco Second hand tobacco smoke exposure: No Additional smoking assessment comments: DOWN TO ~3 CIGARETTES/DAY AND NICOTINE GUM IN PAST YEAR Alcohol intake: current Drinks per week: 6 Alcohol use details: july 3-4 drinks on the weekends Substance use: never Substance use type: does not use Lack of Transportation: No Lack of Food: Never True Current Housing: I Have Housing Concerned About Future Housing: No Difficulty Paying Gas/Electric Bills: No Difficulty Paying for Meds: No Currently Unemployed: No Education: Associate Degree Difficulty w/ Childcare or Family Care: No Living arrangements: with family Spiritual care concerns: No Anes - Eval Final PreProcedure Day of Procedure 05/20/23 07:40 Patient weight: normal Heart: regular rate and rhythm Lungs: clear to auscultation Airway: Mallampati scale class II Neurological: alert and oriented Last oral intake: >/= 8 hours ASA classification: II Emergent: no Anesthetic plan: proceed Anesthesia type and monitoring: general ETT and standard monitoring Results Review: All pre-operative results and documents have been reviewed as part of the pre-operative evaluation. Informed Consent: The patient's anesthetic plan and its attendant risks and benefits were discussed with the patient/family/POA. Questions were solicited and answers provided to the satisfaction of the patient/family/POA.
[2023-05-20] MEDS: ceFAZolin 2 GM/D5W 50 ML 2 GM/50 ML BAG IVPB (07:52)
[2023-05-20] MEDS: BUPivacaine HCL 0.5% 10 ML AMP 20 ML INFILTRATE (08:41)
--- NOTE | 2023-05-20 09:32 | PM.OP ---
Procedure Note - Brief Procedure Note - Brief Date of procedure: 05/20/23 Recurrent post menopausal bleeding Post-op diagnosis: Same Procedure performed: Robotic assisted laparoscopic vaginal hysterectomy with bilateral salpingo-oophorectomy Surgeon: Cristopher Leon MD Anesthesia: GETKenn Estimated blood loss (mL): 20 Drains: No Packing: No Pathology: Yes (uterus with cervix and right and left fallopian tubes and ovaries) Complications: No immediate complications Condition: Stable Disposition: PACU
--- NOTE | 2023-05-20 10:02 | W.PM.PROC2 ---
Procedure Note - Detailed Date of Procedure 05/20/23 Pre-op Diagnosis Recurrent post menopausal bleeding Post-op Diagnosis Same Procedure Performed robotic assisted laparoscopic vaginal hysterectomy with bilateral salpingo-oophorectomy Surgeon Cristopher Leon MD Power Tong Operator Saran Anesthesia General Indications Recurrent postmenopausal bleeding Findings Normal uterus, adhesion of left ovary to uterus, endometriosis like lesion on ovary near adhesion, evidence of tubal ligation with falope rings present Description of Procedure After informed consent was obtained she was taken to the operating room and general endotracheal anesthesia was administered. She was placed in low lithotomy position. She was and prepped and draped in sterile fashion. Arrieta catheter placed in bladder. Attention was turned to the vagina speculum was inserted. Single-tooth tenaculum placed on anterior lip of the cervix the uterus sounded to 7.5 cm. The cervix was dilated to a 8 Cordova dilator. A size 6 uterine manipulator was inserted and secured. A size 3.0 colp cup was secured in the vagina. Then attention was turned to the abdomen with new sterile gloves. .25% marcaine injected subcutaneously. An incision was made horizontal 2 cm above the umbilicus. A Veress needle was inserted with the anterior abdomen tented up. Confirmation into the abdomen obtained with normal free flow of fluid and normal peritoneal pressures. A pneumoperitoneum of 15 mm per mercury was obtained. Robotic port was inserted under laparoscopic visualization. Patient was placed in steep Trendelenburg position. A small incision was made approximately 6 cm lateral to the port on the left side of the port. A size 8mm robotic port was inserted under laparoscopic visualization into the abdomen on the left side. Attention was turned to the right side of the abdomen and an incision was made. Marcaine was injected subcutaneously prior to incision. A robotic port was inserted under laparoscopic visualization. Superior medial to this under laparoscopic visualization Marcaine was injected subcutaneously and an engineering inspection assistant port was inserted under laparoscopic visualization. The robotic arms were attached to the ports. Attention was then turned to the surgery console. The right round ligament was ligated with the vessel sealer. The anterior leaf of the broad ligament was dissected anteriorly to the vesicouterine peritoneum which was dissected off of the lower uterine segment. The bladder was retracted from the lower uterine segment. The right infundibulopelvic ligament was ligated with the vessel sealer. The fallopian tube was ligated with the vessel sealer from the broad ligament. The ovarian ligament was ligated with the vessel sealer. The a posterior leaf of the broad ligament was further dissected. The ascending uterine vessels on the right were ligated. The uterine vessels were ligated. Attention was turned to the left round ligament which was ligated and the anterior leaf of the broad ligament was dissected anteriorly. The rest of the vesicouterine peritoneum was dissected off of the uterus, retracting the bladder inferiorly. Once the bladder was dissected below the colp cup then the posterior leaf of the broad ligament was further dissected. There was some adhesion of the left distal fallopian tube which was ligated from the sidewall. The infundibulopelvic ligament was then ligated. The adhesions were lysed from the ovary that were attached distally to the posterior broad ligament and the uterus. The left fallopian tube was removed through the port. This did mobilize the left ovary and the ovarian ligament was ligated. The ascending uterine vessels were ligated with the vessel sealer. The uterine arteries were ligated. The cardinal ligaments were ligated. This was done on both sides. An incision was made anterior colpotomy incision was made and this was carried around until the cervix was removed
--- NOTE | 2023-05-20 11:53 | ADMGEN ---
1115-This patient, Julissa Ahn, was admitted to OB 2nd Floor Room 289-00. Patient/family oriented to hospital policies and general routines including ID bracelet, bed and alarms, visiting hours, pain management, procedures, bathroom and other care routines, personal items, smoking policy, room service/diet, and visiting hours. Information on how to activate the Rapid Response Team has been discussed. Patient/Family are encouraged to report perceived risks to care and to ask questions if they do not understand what they are told or what they should do.
[2023-05-20] MEDS: SIMETHICONE 80 MG TAB.CHEW PO ×2 (12:07→17:17)
[2023-05-20] MEDS: DEXTROSE 5%/0.45% SOD CHL 1,000 ML 125 ML IV CONT (12:07)
== END 2023-05-20 19:29 | disposition home or self-care (01) ==
LOC: ANHSURGERY 06:31 → ANHOB2 14:37
PROVIDERS: PCP Internal Medicine; Visit Provider Obstetrics & Gynecology
PROC: (CPT 58552; principal; 2023-05-20 08:30)
DX: N95.0 Postmenopausal bleeding (principal); N73.6 Female pelvic peritoneal adhesions (postinfective); Z98.51 Tubal ligation status; N88.8 Other specified noninflammatory disorders of cervix uteri; N80.03 Adenomyosis of the uterus; N83.8 Other noninflammatory disorders of ovary, fallopian tube and broad ligament; N70.11 Chronic salpingitis; N80.101 Endometriosis of right ovary, unspecified depth; F17.210 Nicotine dependence, cigarettes, uncomplicated
CPT/HCPCS: 58552; S2900; 88307; A9270; J0690; J1100; J1170; J1596; J1885; J2250; J2405; J2704; J2710; J3010; J7030; J7120

== ENCOUNTER 2023-11-19 14:52 | Outpatient (CLI) | payer OTHER, SELFPAY ==
[2023-11-19 15:08] LABS: Basophils Percent Auto 0.2 % (0.2-1.2); Eosinophils Absolute Auto 0.1 K/mm3 (0-0.3); Eosinophils Percent Auto 1.8 % (0-4.4); Hematocrit 47.5 % (37.0-47.0); Hemoglobin 15.5 g/dL (12.0-15.0); Immature Granulocyte Absolute 0.01 K/mm3 (0.00-0.031); Immature Granulocyte Percent A 0.2 % (0-0.5); Lymphocytes Absolute Auto 1.59 K/mm3 (0.9-3.2); Lymphocytes Percent Auto 28.4 % (18.3-44.2); Mean Corpuscular HGB Conc 32.6 g/dl (32-36); Mean Corpuscular Hemoglobin 31.7 pg (26-34); Mean Corpuscular Volume 97.1 fl (80-100); Mean Platelet Volume 9.9 fl (7.4-10.4); Monocytes Absolute Auto 0.4 K/mm3 (0.1-0.6); Neutrophils Absolute Auto 3.5 K/mm3 (1.3-6.7); Neutrophils Percent Auto 62.4 % (45.5-73.1); Platelet Count Result 192 k/mm3 (150-375); Red Blood Count 4.89 M/mm3 (4.2-5.4); Red Cell Distribution Width 12.8 % (11.5-14.5); White Blood Count 5.6 K/mm3 (4.5-10.0)
[2023-11-19 16:27] LABS: Iron 92 ug/dL (37-170)
[2023-11-19 16:31] LABS: Alanine Aminotransferase 41 U/L (6-35); Albumin Level 4.4 g/dL (3.5-5.1); Alkaline Phosphatase 116 U/L (38-126); Anion Gap 8 mmol/L (4-12); Aspartate Amino Transferase 41 U/L (14-36); Bilirubin,Total 0.5 mg/dL (0.2-1.3); Blood Urea Nitrogen 12 mg/dL (7-17); Calcium 9.3 mg/dL (8.4-10.2); Carbon Dioxide 33 mmol/L (22-30); Chloride 96 mmol/L (98-107); Estimated Glomerular Filt Rate > 60; Glucose 93 mg/dL (65-110); Sodium 137 mmol/L (137-145)
[2023-11-19 16:38] LABS: Percent Iron Saturation 28 % (20-50)
[2023-11-19 17:36] LABS: Folic Acid 3.2 ng/mL (2.76->20)
[2023-11-24 09:13] LABS: Methylmalonic Acid 230 nmol/L (55-335)
[2023-11-27 10:27] LABS: Soluble Transferrin Receptor 1.64 mg/L (0.76-1.76)
== END 2023-11-19 14:53 | disposition home or self-care (01) ==
LOC: ANHLAB 14:53
PROVIDERS: PCP Physician Assistant; Visit Provider Internal Medicine Hematology & Oncology
DX: D72.819 Decreased white blood cell count, unspecified (principal)
CPT/HCPCS: 36415; 80053; 82607; 82728; 82746; 83540; 83550; 83921; 84238; 85025; 86038; 86039

== ENCOUNTER 2023-12-01 08:43 | Outpatient (CLI) | payer OTHER, SELFPAY ==
--- NOTE | ~2023-12-01 | US_ITS ---
COMPLETE ABDOMINAL ULTRASOUND Ordering provider: Madi Altamirano MD History: . Leukopenia . Comparison: None. FINDINGS: LIVER: Normal size and echotexture. No focal hepatic lesions or perihepatic fluid collections are desean ntified. Portal vein flow is normal. GALLBLADDER: Unremarkable. No evidence for stones, sludge, gallbladder wall thickening or pericholecy stic fluid collections. A negative sonographic Montanez's sign was noted. BILIARY DUCTS: No evidence for intra or extrahepatic biliary dilation. Common bile duct measures 5 mm in diameter which is within normal limits. PANCREAS: Normal echotexture and size. SPLEEN: Normal size, echotexture and contour and measures 10.6 cm in length. KIDNEYS: Right measures 9.9x 4.2x 4.3 cm in length and the left 9.6x 4.9x 5.2 cm in length. There is no evidence for hydronephrosis, solid renal mass, renal calculi or perinephric fluid collections. No renal cysts. UPPER ABDOMINAL AORTA: Normal in caliber. Proximal aorta measures 2.1 cm. Mid aorta measures 1.9 cm. Distal aorta measures 1.7 cm. IVC: Patent. FREE FLUID: None. IMPRESSION: Unremarkable complete ultrasound of the abdomen. Reviewed, dictated and finalized at location A.
== END 2023-12-01 08:44 | disposition home or self-care (01) ==
LOC: MICIMG 08:44
PROVIDERS: PCP Internal Medicine Hematology & Oncology; Visit Provider Internal Medicine Hematology & Oncology
DX: D72.819 Decreased white blood cell count, unspecified (principal)
CPT/HCPCS: 76700

== ENCOUNTER 2023-12-04 07:07 | Outpatient (CLI) | payer OTHER, SELFPAY ==
--- NOTE | ~2023-12-04 | MM_ITS ---
EXAMINATION: MM screening mary alice BI w dionicio HISTORY: Screening TECHNIQUE: Craniocaudal and mediolateral oblique 3-D tomosynthesis images were obtained and synthetic 2-D images were generated. CAD analysis was submitted and interpreted. COMPARISON: Comparison to multiple prior studies sequentially, with oldest reviewed study dated 06/2013. BREAST PARENCHYMAL COMPOSITION: Dense: The breasts are heterogeneously dense, which may obscure small masses FINDINGS: There is no evidence of suspicious mass, calcification, or architectural distortion to sugg est malignancy in either breast. There has been no suspicious interval change. IMPRESSION: 1. No mammographic evidence of malignancy. 2. Recommend routine screening mammography in one year. BI-RADS Category 1: Negative Reviewed, dictated and finalized at location B.
== END 2023-12-04 07:08 | disposition home or self-care (01) ==
LOC: ANHIMG 07:09
PROVIDERS: PCP Physician Assistant; Visit Provider Physician Assistant
DX: Z12.31 Encounter for screening mammogram for malignant neoplasm of breast (principal)
CPT/HCPCS: 77063; 77067

== ENCOUNTER 2024-01-16 11:20 | Emergency (ER) | payer OTHER, SELFPAY ==
--- NOTE | 2024-01-16 11:21 | ED_ITS ---
HPI - URI/Sore Throat General Chief Complaint: Upper Respiratory Infection Stated Complaint: Cold Symptoms Time Seen by Provider: 01/16/24 11:21 Source: patient Mode of arrival: ambulatory Limitations: no limitations History of Present Illness HPI Narrative: Julissa is a 48-year-old female patient presenting to the clinic today with complaints of cold symptoms. She reports she has runny nose and cough x1 week. Denies any fever, chills, sore throat, body aches, shortness breath, or chest pain. States she does get into some coughing fits. Cough is productive however she does not know what color it is. She is a former smoker and has history of asthma. MD elicited complaint: cough and nasal congestion Related Data Allergies Allergy/AdvReac Type Severity Reaction Status Date / Time cat dander Allergy Mild Other Verified 01/16/24 11:30 ragweed pollen Allergy Mild Watery Eye Verified 01/16/24 11:30 Review of Systems Review of Systems: Pertinent positives per HPI. Patient denies any fever, chills, rash, headache, visual changes, dizziness, sore throat, shortness of breath, chest pain, palpitations, nausea, vomiting, diarrhea, constipation, abdominal pain, or any urinary issues. [facility] Past Medical History Medical History Asthma History of vaginal delivery Toenail fungus Surgical History Surgical History H/O tubal ligation H/O: hysterectomy History of bunionectomy History of colonoscopy History of salpingo-oophorectomy S/P breast lumpectomy [place] teeth removed Family History Family History Mother Patient's mother is in good health Family history of dementia Father Heart disease Sibling Patient's sister is in good health Patient's brother is in good health Grandparent Carcinoma of colon Family history of malignant neoplasm of breast Cerebrovascular accident Social History Social History Smoking packs per day: 1 Smoking cigarettes per day: 20.0 Years smoked: 34 Smoking pack-years: 34.00 Smoking status: Former smoker Tobacco type: cigarettes and smokeless tobacco Second hand tobacco smoke exposure: No Additional smoking assessment comments: DOWN TO ~3 CIGARETTES/DAY AND NICOTINE GUM IN PAST YEAR Alcohol intake: current Drinks per week: 6 Alcohol use details: may 3-4 drinks on the weekends Substance use: never Substance use type: does not use Lack of Transportation: No Lack of Food: Never True Current Housing: I Have Housing Concerned About Future Housing: No Difficulty Paying Gas/Electric Bills: No Difficulty Paying for Meds: No Currently Unemployed: No Education: Associate Degree Difficulty w/ Childcare or Family Care: No Living arrangements: with family Spiritual care concerns: No Comments At the time of my signature, I reviewed and agree with the nursing past medical, surgical, social, and family history. There is no relevant family history pertinent to the patient complaint. Exam Narrative: General: Well-developed, well nourished, in no apparent distress Head: Normocephalic, atraumatic Eyes: Pupils equally round and reactive to light bilaterally, EOM intact, sclera and conjunctive clear, no discharge, lids normal Ears: TMs intact and clear, ear canals clear, no drainage, grossly hearing normal. Nose: Nares patent, no discharge, no inflammation, no sinus tenderness. Mouth: Oral pharynx without lesions or masses, good dentition, MMM. Neck: Supple, trachea midline, no enlargement of anterior or posterior cervical nodes, no thyroid masses or goiter palpable. Cardio: Regular rate and rhythm, s1 and s2 normal, no murmur appreciated. Resp: Clear to auscultation bilaterally, no rhonchi, rales, wheezing or rubs Course Course Emergency Course: Portions of this record may have been created with voice recognition software. Level of Care: Express Care Visit Vital Signs Vital signs: Vital signs reviewed MDM - URI/Sore Throat MDM Narrative Medical decision making narrative: At the time of visit patient is resting comfortably on the exam table. Patient appears to be nontoxic. Plan: I suspect patient has URI. Prescription for prednisone and albuterol inhaler was sent to the pharmacy. Supportive measures were discussed with the patient and they voiced understanding discharge instructions and agrees to treatment plan. Return precautions reviewed Differential Diagnosis Differential diagnosis: Likely upper respiratory infection, otitis media, sinusitis, viral infection, bronchitis, influenza, pharyngitis and other (COVID) Discharge Plan Discharge Clinical Impression: Upper respiratory infection Qualifiers: URI type: unspecified URI Qualified Code(s): J06.9 - Acute upper respiratory infection, unspecified Patient Disposition: Home, Self-Care Condition: Stable Instructions: Antibiotic Form, Cold Symptoms (ED) Additional Instructions: Take prescription medications only as prescribed-prednisone and albuterol inhaler Increase fluids and stay well hydrated Tylenol/motrin for pain/fever Flonase and OTC antihistamines as directed Vicks vapor rub to open sinuses Sinus rinses for congestion Cepacol spray, cough drops, throat lozenges, warm tea with honey/lemon, gargle salt water to soothe throat BRAT diet for diarrhea Clear liquids x 24 hours then advance as tolerated for nausea/vomiting Go to the ED if you develop a worsening in your condition- high fever not controlled by Tylenol or Motrin, dehydration, weakness, lethargy, shortness of breath, or chest pain. Follow up with your PCP in 3-5 days if symptoms persist. Prescriptions: New prednisone 20 mg tablet 40 mg PO DAILY 5 Days Qty: 10 0RF albuterol sulfate 90 mcg/actuation HFA aerosol inhaler 2 puff inhalation Q4-6H PRN (Reason: shortness of breath or wheezing) 30 Days Qty: 8.5 0RF No Action carvedilol 6.25 mg tablet 6.25 mg PO DAILY Qty: 90 1RF atorvastatin 20 mg tablet 20 mg PO DAILY Qty: 90 1RF Rx Instructions: Patient was just prescribed this medication and doesn't plan on starting until after surgery. fluticasone propionate 50 mcg/actuation spray,suspension See Rx Instructions .ROUTE .COMPLEX Qty: 48 3RF Dose Instruction: USE 2 SPRAYS NASALLY DAILY Rx Instructions: USE 2 SPRAYS NASALLY DAILY Follow-up/Referrals: UNKNOWN,DOCTOR [Non-Staff] - Time of Disposition: 11:55 Quality NIHSS Nursing Documentation ED NIHSS nursing documentation: reviewed/agree
[2024-01-16 11:29] VITALS: BP 156/89; PULSE 121; RESP 18; TEMP 36.4; O2SAT 97
[2024-01-16 11:31] VITALS: BP 156/89; PULSE 121; RESP 18; TEMP 36.4; O2SAT 97
== END 2024-01-16 12:07 | disposition home or self-care (01) ==
PROVIDERS: Emergency Provider Nurse Practitioner Family
DX: J06.9 Acute upper respiratory infection, unspecified (principal); F17.210 Nicotine dependence, cigarettes, uncomplicated; J45.909 Unspecified asthma, uncomplicated
CPT/HCPCS: 99213; G0463

== ENCOUNTER 2024-06-07 15:06 | Outpatient (CLI) | payer OTHER, SELFPAY ==
--- NOTE | ~2024-06-07 | CT_ITS ---
CT Scan of the Chest without Contrast: Clinical Indication: Lung cancer screening, nicotine dependence Technique: Contiguous sections were acquired throughout the chest without intravenous contrast. Dose reduction technique was used on this scan by utilizing automated exposure control and iterative recon struction technique. The dose-length product (DLP) was 54.48 mGy-cm. Findings: There is no evidence of any significant mediastinal, hilar or axillary lymphadenopathy. Coronary elaine ry calcifications are present. There is no evidence of pleural or pericardial effusion. The lungs are clear. No pulmonary nodules or infiltrates are noted. Images through the upper abdomen reveal no abnormalities. Impression: Lung RADS 1: Negative. 12 month follow-up screening CT advised. Reviewed, dictated and finalized at location . Impression: Lung RADS 1: Negative. 12 month follow-up screening CT advised.
== END 2024-06-07 15:07 | disposition home or self-care (01) ==
LOC: MICIMG 15:07
PROVIDERS: PCP Family Medicine; Visit Provider Family Medicine
DX: F17.210 Nicotine dependence, cigarettes, uncomplicated (principal)
CPT/HCPCS: 71271

== ENCOUNTER 2024-07-26 16:06 | Outpatient (CLI) | payer OTHER, SELFPAY ==
--- NOTE | ~2024-07-26 | XR_ITS ---
XR cervical spine min 6V Ordering provider: Abdiaziz Neely PA-C History: . M54.2 - Cervicalgia . Comparison: None. FINDINGS: VERTEBRAL BODIES: Normal height and alignment. No visible fracture or subluxation. The dens is intact . Degenerative changes of the spine. DISK SPACES: Narrowing of the disc C3-C4 and C4-C5. Multilevel uncovertebral joint osteoarthritic payton nges. PARASPINOUS SOFT TISSUES: No prevertebral soft tissue swelling. Right carotid atherosclerotic changes . IMPRESSION: No acute osseous abnormality cervical spine. Consider follow up MRI of the cervical spine if patient has continued neck pain and if there is jenn rn for spinal stenosis. Reviewed, dictated and finalized at location A. IMPRESSION: No acute osseous abnormality cervical spine. Consider follow up MRI of the cervical spine if patient has continued neck pain and if there is concern for spinal stenosis.
== END 2024-07-26 16:07 | disposition home or self-care (01) ==
PROVIDERS: PCP Family Medicine; Visit Provider Physician Assistant
DX: M54.2 Cervicalgia (principal); R20.0 Anesthesia of skin
CPT/HCPCS: 72052